=== PATIENT | male | born 1975 | race Caucasian/White ===

== ENCOUNTER 2019-06-24 00:48 | Emergency (ER) | payer SELFPAY ==
[~2019-06-24] VITALS: Ht 172.7 cm; Wt 89.1 kg
[2019-06-24] MEDS ORDERED: KETOROLAC 60 MG/2 ML VIAL IM STA (01:08)
[2019-06-24] MEDS ORDERED: HYDROcodone/APAP 7.5 MG/325 MG (LORTAB, LORCET PLUS) TABLET PO STA (01:08)
[2019-06-24] MEDS ORDERED: TETRACAINE 0.5% OPHTH SOLN 4 ML BTL (SINGLE DOSE ONLY) OU ONE (01:15)
[2019-06-24] MEDS ORDERED: HYDR-34 PO (01:30)
--- NOTE | 2019-06-24 01:31 | ED EENT ---
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 Patient began to experience pain in his eyes around 20:00 06/23/19. Patient is currently rating his pain at a 10 on the 1-10 pain scale. Patient is unable to open his eyes. 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 He reports that he was using a helmet but he would have to start the strike and then put a helmet down. This evening he started having significant eye pain. He was using Systane eyedrops and that was not really helping. Denies other injury. Timing/Duration: gradual Severity: moderate Location: eye (R), eye (L) Prearrival Treatment: over the counter meds Associated Symptoms: No facial pain/swelling Allergies and Home Medications Allergies Coded Allergies: No Known Drug Allergies (Unverified , 06/24/19) Patient Home Medication List Home Medication List Reviewed: Yes Review of Systems Review of Systems Constitutional: see HPI; No chills, No fever Eyes: See HPI, Foreign Body Sensation, Inflammation, Pain, Photophobia Respiratory: no symptoms reported Cardiovascular: no symptoms reported Skin: no symptoms reported Past Emyjxlv-[id number]-[id number] Hx Past Med/Social Hx: Reviewed Nursing Past Med/Soc Hx Patient Social History Alcohol Use: Denies Use Recreational Drug Use: No Smoking Status: Never a Smoker Recent Foreign Travel: No Contact w/Someone Who Travel: No Recent Infectious Disease Expo: No Physical Abuse: No Sexual Abuse: No Mistreated: No Fear: No Seasonal Allergies Seasonal Allergies: No Past Medical History Surgeries: No Respiratory: No Cardiac: No Neurological: No Genitourinary: No Gastrointestinal: No Musculoskeletal: No Endocrine: No HEENT: No Cancer: No Psychosocial: No Integumentary: No Family Medical History Reviewed Nursing Family Hx Physical Exam Vital Signs Vital Signs - First Documented 06/24/19 00:53 Temp 36.4 Pulse 82 Resp 18 Pulse Ox 96 O2 Delivery Room Air Height, Weight, BMI Height: '" Weight: lbs. oz. kg; 29.00 BMI Method: General Appearance: WD/WN, no apparent distress Eyes: bilateral eye conjunctival inflammation, bilateral eye other (moderate irritation to bilateral eyes. Consistent with UV keratitis) Cardiovascular: regular rate, rhythm, no murmur Respiratory: lungs clear, normal breath sounds Neurologic/Psychiatric: alert, oriented x 3 Progress/Results/Core Measures Results/Orders My Orders Orders - LAKESHIA NICHOLS MD Tetracaine 0.5% Ophth Ailyn Sdv (Tetracai (06/24/19 01:15) Hydrocodone/Apap 7.5/325 Tab (Lortab 7. (06/24/19 01:08) Ketorolac Injection (Toradol Injection) (06/24/19 01:08) Medications Given in ED Current Medications Medications Dose Ordered Sig/Hailey Route Start Time Stop Time Status Last Admin Dose Admin Tetracaine HCl 4 ml ONCE ONCE OU 06/24/19 01:15 06/24/19 01:16 DC 06/24/19 01:15 4 ML Vital Signs/I&O 06/24/19 00:53 Temp 36.4 Pulse 82 Resp 18 B/P (MAP) Pulse Ox 96 O2 Delivery Room Air Progress Progress Note : Progress Note Tetracaine 3 drops to bilateral eyes which did give significant pain relief. Hydrocodone 7.5 one tab by mouth given. Toradol 60 mg IM. Return precautions given as well as supportive care instructions. Discharged home with return precautions. Patient verbalize understanding instructions and agreement with plan. Departure Impression Primary Impression: UV keratitis Qualified Codes: H16.133 - Photokeratitis, bilateral Disposition: 01 HOME, SELF-CARE Condition: Stable Departure-Patient Inst. Decision time for Depature: 01:28 Referrals: NO,LOCAL PHYSICIAN (PCP) Primary Care Physician Patient Instructions: Photokeratitis ([facility]) Add. Discharge Instructions: All discharge instructions reviewed with patient and/or family. Voiced understanding. You should follow up with your eye doctor for recheck and further evaluation. You need to stay in a dark space today to let your eyes rest. You may take ibuprofen 600 mg every 8 hours as needed for pain. You may also take Tylenol/acetaminophen 1000 mg every 8 hours as needed for pain. Do not take the acetaminophen if you're taking the prescribed pain medicine as they both have acetaminophen and them. Return for worse pain, vision problems, fever or other concerns as needed. You may use the Systane eyedrops as needed to keep eyes moist. Make sure that you have your helmet down before initiating ARC to prevent further injury. Scripts Hydrocodone Bit/Acetaminophen (LORTAB 7.5 MG TABLET) 1 Ea Tablet 1 EACH PO Q6H, #6 TAB 0 Refills Prov: LAKESHIA NICHOLS MD 06/24/19 Work/School Note: Work Release Form Date Seen in the Emergency Department: Jun 24, 2019 Return to Work: Jun 25, 2019 Restrictions: No Restrictions Other Restrictions Listed Below: May use sunglasses or other protective eyewear to decrease light exposure LAKESHIA NICHOLS MD Jun 24, 2019 01:31 POS
[2019-06-24 01:34] VITALS: BP 134/98
== END 2019-06-24 01:34 | disposition home or self-care (01) ==
LOC: EDUNIT# 00:48 → ER FS 00:52
DX: H16.133 Photokeratitis, bilateral (principal)
CPT/HCPCS: 96372; 99284